=== PATIENT | male | born 2000 | race Caucasian/White ===

== ENCOUNTER 2021-06-22 17:16 | Inpatient (IN) | payer MEDICAID, SELFPAY ==
[2021-06-22 17:16] VITALS: BMI 20.2
[2021-06-22 17:19] VITALS: BP 124/69; PULSE 67; RESP 18; TEMP 36.7; O2SAT 95
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
--- NOTE | 2021-06-22 18:00 | PC.NURSE ---
QUESTION OF BED BUGS ER THAT PATIENT WAS IN CALLED TO REPORT THAT PATIENT HAS STATED HE HAD BED BUGS. ER NURSE REPORTED THAT THERE WERE NO SIGNS OF THIS NOTED ON PATIENT. PATIENT HAS BEEN EXPERIENCING HALLUCINATIONS AND PARANOIA. NPU DIRECTOR CALLED TO VERIFY WHAT OUR PROCEDURE WOULD BE TO BE ABLE TO ACCEPT PATIENT D/T THE CHANCE OF BED BUGS. ER WAS NOTIFIED THAT WE WOULD NEED THEM TO BAG AND SEAL BELONGINGS, AND FOLLOW THEIR POLICY TO TREATING IT, THEN SEND NPU DOCUMENTATION. THIS WAS COMPLETED. BELONGINGS CAME IN SEALED BAGS. UPON ARRIVAL TO UNIT, [facility] SKIN ASSESSMENT COMPLETED, NO SIGNS OF BITES NOTED ON PERSON.
[2021-06-22] MEDS: risperiDONE 1 mg Tablet PO (18:31)
[2021-06-22] MEDS: trazodone 100 mg Tablet PO (20:32)
[2021-06-22 22:00] VITALS: BP 111/69; PULSE 88; RESP 16; TEMP 36.3; O2SAT 96
[2021-06-23 06:00] VITALS: BP 110/58; PULSE 56; RESP 16; TEMP 36.6; O2SAT 96
[2021-06-23] MEDS: OLANZapine 5 mg ODT PO ×2 (08:16→17:15)
--- NOTE | 2021-06-23 08:17 | PC.NURSE ---
Zyprexia 5m sl given for auditory hallucinations and anxiety.
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
--- NOTE | 2021-06-23 10:11 | PC.NURSE ---
0930 Patient is resting supine, eyes closed. No distress observed.
[2021-06-23] MEDS: risperiDONE 1 mg Tablet PO (11:53)
[2021-06-23 13:28] VITALS: BP 97/54; PULSE 82; RESP 17; TEMP 36.9; O2SAT 99
--- NOTE | 2021-06-23 17:17 | PC.NURSE ---
Patient mother called and said that patient is hearing voices and is afraid to come to the desk and tell anyone. Patient stated the voices are getting worse. Whispering in nature and non commanding.
[2021-06-23] MEDS: haloperidol 5 mg Tablet PO (18:07)
--- NOTE | 2021-06-23 18:08 | PC.NURSE ---
patient at nurses station with continued c/o hearing voices. Haldol 5 mg po given.
[2021-06-23] MEDS: risperiDONE 2 mg Tablet PO (20:30)
[2021-06-23 20:42] VITALS: BP 124/68; PULSE 74; RESP 16; TEMP 36.6; O2SAT 99
[2021-06-24 06:00] VITALS: BP 109/67; PULSE 57; RESP 17; TEMP 36.8; O2SAT 98
[2021-06-24] MEDS: risperiDONE 1 mg Tablet PO (08:04)
[2021-06-24] MEDS: haloperidol 5 mg Tablet PO ×2 (08:05→11:30)
[2021-06-24] MEDS: hyDROXYzine 25 mg Capsule 50 MG PO (08:10)
--- NOTE | 2021-06-24 08:10 | PC.NURSE ---
Patient at nurses station stating voicing hearing voices that arent going away and are bad. States they are whispering and non commanding. Patient has anxious affect. Giving prn vistaril and haldol for this. 1:1 sitter ordered. Patient states I want to hang myself. Contracts for safety.
--- NOTE | 2021-06-24 08:14 | P.NPUPN_ITS ---
Subjective NPU Subjective: Interval history: The nurses report that he had bad hallucinations last night. Kemi Ferrera did not seem to do anything but Haldol 5 mg did. He is up to the window complaining of command hallucinations to harm himself now. We will go ahead and increase the risperidone to 3 mg twice a day. He says that he normally likes to read but he cannot concentrate to read because of the voices. He cannot distract himself from them. He says the risperidone helps his normal voices but these are just voices that have started recently and it has not helped him. Mental Status Exam MSE Comments: This is a 20-year old thin male who appears approximately his stated age and significantly distressed because of the hallucinations. He is pleasant and cooperative with the evaluation. He is dressed in hospital scrubs with fair grooming and several days of growth of hampton. psychomotor activity increased. He is tremulous Speech is at a regular rate and rhythm, normal volume, good articulation, not pressured. Alert, oriented X3 Attention and concentration appear to be intact. Memory is intact Mood is depressed. Affect is more dysphoric. Thought process is logical and goal-directed. Thought content: He admits to auditory hallucinations but denies visual hallucinations. No delusions or paranoia are noted. However he reportedly thought that there was a WebCam in his classes at home. He admits to recent but no current suicidal ideation, and no homicidal ideation. Fund of knowledge is appears to be average. Insight and judgment appear to be fair. Impulse control is poor. Cognition: Patient Appearance: Appropriate Ability to Follow Directions: Good Patient Orientation (long list): Person and Name Comprehension Ability: Mild Impairment Hallucination Type: Auditory Delusion Description: Not Present Thought Process: Appropriate Affect: Affect Description: Appropriate Behavior: Patient Behavior: Appropriate, Cooperative and Withdrawn Speech Pattern: Appropriate and Clear Vitals/I&O/Wt Last Vital Signs Temp 98.2 F 06/24/21 06:00 Pulse 57 L 06/24/21 06:00 Resp 17 06/24/21 06:00 BP 109/67 06/24/21 06:00 Pulse Ox 98 06/24/21 06:00 Weight last 48 hrs Weight 58.513 kg A&P Assessment and plan (1) Schizophrenia: Status: Acute (2) PTSD (post-traumatic stress disorder): Status: Acute (3) Cannabis abuse: Status: Acute Plan This is a 20-year-old male who reports a lifetime of hearing auditory hallucinations and also suffers from PTSD and autism by his report. Plan: 1. We will gradually increase the risperidone 3 mg twice daily. Continue Vistaril and trazodone as needed. 2. Continue every 15 minute checks for safety. 3. Encourage individual, group and milieu therapies. 4. Encourage sober living treatment after discharge at the highest level of care to which he is willing to commit. 5. We will monitor for safety for himself in the community prior to discharge. Involuntary Hold Information 96 Hour Hold: 96 Hour Involuntary Admission: No Attestations NPU Medical Necessity Statement*: Inpatient hospitalization is medically necessary and the clinically appropriate intervention at this time. We will initiate medications and make changes as indicated. Coding Level of Care Code Acute Retail Presentation Specialist for [facility] Diagnoses Schizophrenia F20.9 PTSD (post-traumatic stress disorder) F43.10 Cannabis abuse F12.10
[2021-06-24] MEDS: risperiDONE 2 mg Tablet PO (08:42)
[2021-06-24 14:00] VITALS: BP 112/74; PULSE 81; RESP 16; TEMP 36.6; O2SAT 99
[2021-06-24] MEDS: risperiDONE 1 mg Tablet 3 MG PO (20:29)
[2021-06-24 21:45] VITALS: BP 138/71; PULSE 65; RESP 18; TEMP 36.3; O2SAT 100
[2021-06-25 06:00] VITALS: BP 115/66; PULSE 76; RESP 16; TEMP 36.1; O2SAT 97
[2021-06-25] MEDS: risperiDONE 1 mg Tablet 3 MG PO ×2 (09:34→21:25)
[2021-06-25 14:00] VITALS: BP 143/83; PULSE 118; RESP 18; O2SAT 100
[2021-06-25] MEDS: haloperidol 5 mg Tablet PO (18:09)
[2021-06-25] MEDS: hyDROXYzine 25 mg Capsule 50 MG PO (18:09)
[2021-06-25] MEDS: LORazepam 1 mg Tablet PO (19:41)
[2021-06-25 22:00] VITALS: BP 127/82; PULSE 88; RESP 20; TEMP 36.3; O2SAT 98
--- NOTE | 2021-06-25 22:52 | P.NPUPN_ITS ---
Subjective NPU Subjective: Interval history: Patient presents today reporting that things are going okay. He reported that he had a struggling with voices but that does have gone to the background. A lot of this has to do with some of the positives and negatives that have come from reconnecting with his bio family and some of the triggering of PTSD symptoms from that. He was worried about having a place to go but he reports his lease is ending and he would likely be able to stay with his family briefly. He reports that he is but he put off his trip to see his family while he is stabilized. Mental Status Exam MSE Comments: This is a underweight versus slender white male in hospital scrubs with limited grooming and eye contact. No abnormal movements except for psychomotor retardation. Mostly cooperative with exam and mild to moderate distress. Speech was decreased rate and volume and somewhat drowsy. Mood described as a little better, affect anxious. Thought process organized. T hought content: Patient denied suicidal or homicidal ideation, there were no delusions reported or noted, he denied any auditory or visual hallucinations. Attention and concentration were intact and memory appeared mostly reliable but none were formally tested. He is oriented x3. Insight and judgment are limited and impulse control is impaired. Vitals/I&O/Wt Last Vital Signs Temp 97.4 F L 06/25/21 22:00 Pulse 88 06/25/21 22:00 Resp 20 H 06/25/21 22:00 BP 127/82 06/25/21 22:00 Pulse Ox 98 06/25/21 22:00 A&P Assessment and plan (1) Schizophrenia: Status: Acute (2) PTSD (post-traumatic stress disorder): Status: Acute (3) Cannabis abuse: Status: Acute (4) Cluster B personality disorder in adult: Status: Acute Plan This is a 20-year-old male who reports a lifetime of hearing auditory hallucinations and also suffers from PTSD and autism by his report. Plan: 1.? We will gradually increase the risperidone 3 mg twice daily.? Continue Vistaril and trazodone as needed. 2.? Continue every 15 minute checks for safety. 3.? Encourage individual, group and milieu therapies. 4.? Encourage sober living treatment after discharge at the highest level of care to which he is willing to commit. Involuntary Hold Information 96 Hour Hold: 96 Hour Involuntary Admission: No Attestations NPU Medical Necessity Statement*: Inpatient hospitalization is medically necessary and the clinically appropriate intervention at this time.? We will initiate medications and make changes as indicated. Likely length of stay 2-4 days. Coding Level of Care Code Acute Top Case Assembler for Chg Fwd Diagnoses Schizophrenia F20.9 PTSD (post-traumatic stress disorder) F43.10 Cannabis abuse F12.10 Cluster B personality disorder in adult F60.9
[2021-06-26 06:00] VITALS: BP 133/72; PULSE 57; RESP 17; TEMP 36.9; O2SAT 99
[2021-06-26] MEDS: risperiDONE 1 mg Tablet 3 MG PO ×2 (09:40→22:00)
[2021-06-26 14:00] VITALS: BP 124/71; PULSE 100; RESP 17; TEMP 36.7; O2SAT 98
--- NOTE | 2021-06-26 15:20 | W.PM.NPUPNS ---
Subjective NPU Subjective: Interval history: Patient presents today reporting that he is feeling a little better today. He reports he is feeling cold but he is always cold and wanted to get under the blankets. He reports that he is feeling a little less anxious and feels like his voices have reduced a bit which he feels is a good thing. He reports he still has them but they are greatly diminished compared to when he first got here. We discussed gearing up for Tuesday discharge and he felt he could be optimistic and likely ready for discharge on that date. Mental Status Exam MSE Comments: This is a underweight versus slender white male in hospital scrubs with limited grooming and eye contact.? No abnormal movements except for psychomotor retardation.? Mostly cooperative with exam in mild distress.? Speech was decreased rate and volume.? Mood described as a little better, affect less anxious.? Thought process organized.? Thought content: Patient denied suicidal or homicidal ideation, there were no delusions reported or noted, he denied any auditory or visual hallucinations.? Attention and concentration were intact and memory appeared mostly reliable but none were formally tested.? He is oriented x3.? Insight and judgment are limited and impulse control is impaired. Vitals/I&O/Wt Last Vital Signs Temp 98.0 F 06/26/21 14:00 Pulse 100 06/26/21 14:00 Resp 17 06/26/21 14:00 BP 124/71 06/26/21 14:00 Pulse Ox 98 06/26/21 14:00 A&P Assessment and plan (1) Cluster B personality disorder in adult: Status: Acute (2) Schizophrenia: Status: Acute (3) PTSD (post-traumatic stress disorder): Status: Acute (4) Cannabis abuse: Status: Acute Plan This is a 20-year-old male who reports a lifetime of hearing auditory hallucinations and also suffers from PTSD and autism by his report. Plan: 1.? We will gradually increase the risperidone 3 mg twice daily.? Continue Vistaril and trazodone as needed. 2.? Continue every 15 minute checks for safety. 3.? Encourage individual, group and milieu therapies. 4.? Encourage sober living treatment after discharge at the highest level of care to which he is willing to commit. Involuntary Hold Information 96 Hour Hold: 96 Hour Involuntary Admission: No Attestations NPU Medical Necessity Statement*: Inpatient hospitalization is medically necessary and the clinically appropriate intervention at this time.? We will initiate medications and make changes as indicated. Likely length of stay 1-3 days. Coding Level of Care Code Acute Environmental Field Team Member for [facility] Fwd Diagnoses Cluster B personality disorder in adult F60.9 Schizophrenia F20.9 PTSD (post-traumatic stress disorder) F43.10 Cannabis abuse F12.10
[2021-06-26] MEDS: trazodone 50 mg Tablet PO (20:48)
[2021-06-26 20:53] VITALS: BP 116/75; PULSE 95; RESP 16; TEMP 36.9; O2SAT 99
[2021-06-27 06:00] VITALS: BP 116/79; PULSE 76; RESP 16; O2SAT 99
[2021-06-27] MEDS: risperiDONE 1 mg Tablet 3 MG PO ×2 (10:26→20:18)
[2021-06-27 14:00] VITALS: BP 124/75; PULSE 87; RESP 16; TEMP 36.7; O2SAT 98
--- NOTE | 2021-06-27 14:31 | W.PM.NPUPNS ---
Subjective NPU Subjective: Interval history: Patient presents today continuing to report optimism and slow improvement. We continue to discuss possibility of discharge on Tuesday. He continues to report that the voices are taking more of a backseat and that he is having less issues overall. Reports that he slept a little better and denied any new challenges. Mental Status Exam MSE Comments: This is a underweight versus slender white male in hospital scrubs with limited grooming and eye contact.? No abnormal movements except for mild psychomotor retardation.? More cooperative with exam in less distress.? Speech was decreased rate and volume.? Mood described as a little better, affect congruent.? Thought process organized.? Thought content: Patient denied suicidal or homicidal ideation, there were no delusions reported or noted, he denied any auditory or visual hallucinations.? Attention and concentration were intact and memory appeared mostly reliable but none were formally tested.? He is oriented x3.? Insight and judgment are limited and impulse control is impaired, but improving Vitals/I&O/Wt Last Vital Signs Temp 98.0 F 06/27/21 14:00 Pulse 87 06/27/21 14:00 Resp 16 06/27/21 14:00 BP 124/75 06/27/21 14:00 Pulse Ox 98 06/27/21 14:00 A&P Assessment and plan (1) Cluster B personality disorder in adult: Status: Acute (2) Schizophrenia: Status: Acute (3) PTSD (post-traumatic stress disorder): Status: Acute (4) Cannabis abuse: Status: Acute Plan This is a 20-year-old male who reports a lifetime of hearing auditory hallucinations and also suffers from PTSD and autism by his report. Plan: 1.? We will gradually increase the risperidone 3 mg twice daily.? Continue Vistaril and trazodone as needed. 2.? Continue every 15 minute checks for safety. 3.? Encourage individual, group and milieu therapies. 4.? Encourage sober living treatment after discharge at the highest level of care to which he is willing to commit. Involuntary Hold Information 96 Hour Hold: 96 Hour Involuntary Admission: No Attestations NPU Medical Necessity Statement*: Inpatient hospitalization is medically necessary and the clinically appropriate intervention at this time.? We will initiate medications and make changes as indicated. Likely length of stay 1-3 days. Coding Level of Care Code Acute Dry End Operator for g Fwd Diagnoses Cluster B personality disorder in adult F60.9 Schizophrenia F20.9 PTSD (post-traumatic stress disorder) F43.10 Cannabis abuse F12.10
[2021-06-27] MEDS: trazodone 50 mg Tablet PO (20:18)
[2021-06-27 22:00] VITALS: BP 136/75; PULSE 90; RESP 16; TEMP 36.8; O2SAT 99
[2021-06-27 22:35] VITALS: BP 136/75; PULSE 90; RESP 16; TEMP 36.8; O2SAT 99
[2021-06-28 05:26] VITALS: BP 136/75; PULSE 90; RESP 16; TEMP 36.8; O2SAT 99
[2021-06-28 06:00] VITALS: BP 116/80; PULSE 110; RESP 18; TEMP 36.7; O2SAT 98
--- NOTE | 2021-06-28 06:04 | PC.NURSE ---
PRN Administration: Patient c/o trouble getting to sleep, given PRN trazodone with noted effectiveness.
[2021-06-28] MEDS: risperiDONE 1 mg Tablet 3 MG PO ×2 (09:00→20:10)
--- NOTE | 2021-06-28 09:10 | PC.NURSE ---
AM assessment Patient resting in bed with eyes closed. He awakens easily to verbal stimuli. He denies pain at this time. He denies SI or HI. He does c/o muted voices but does not describe them. Denies all other hallucinations. Affect is bland. Hr regular in rhythm. PPP x 2, no edema noted. Lungs clear with breathing even and non labored. Bowel sounds active in all quads. Denies pain with urination. Denies all other pain. Skin is warm and dry with no skin tears, rashes or bruises noted.
--- NOTE | 2021-06-28 11:37 | P.NPUPN_ITS ---
Subjective NPU Subjective: Interval history: Patient presents today reporting that he is continuing to feel a little better a day at a time. He reports he feels excited about the prospect of discharging tomorrow and going home. He reports that the voices are not bothering him anymore than the level that he can manage and that he is doing much better from the standpoint of depression. He reports he is eating and sleeping well. Mental Status Exam MSE Comments: This is a underweight versus slender white male in hospital scrubs with limited grooming and eye contact.? No abnormal movements except for resolving mild psychomotor retardation.? More cooperative with exam in no acute distress.? Speech was decreased rate and volume.? Mood described as better, affect congruent.? Thought process organized.? Thought content: Patient denied suicidal or homicidal ideation, there were no delusions reported or noted, he denied any auditory or visual hallucinations.? Attention and concentration were intact and memory appeared mostly reliable but none were formally tested.? He is oriented x3.? Insight and judgment are limited and impulse control is improving Vitals/I&O/Wt Last Vital Signs Temp 98.0 F 06/28/21 06:00 Pulse 110 H 06/28/21 06:00 Resp 18 06/28/21 06:00 BP 116/80 06/28/21 06:00 Pulse Ox 98 06/28/21 06:00 Weight last 48 hrs Weight 61.507 kg A&P Assessment and plan (1) Cluster B personality disorder in adult: Status: Acute (2) Schizophrenia: Status: Acute (3) PTSD (post-traumatic stress disorder): Status: Acute (4) Cannabis abuse: Status: Acute Plan This is a 20-year-old male who reports a lifetime of hearing auditory hallucinations and also suffers from PTSD and autism by his report. Plan: 1.? We will gradually increase the risperidone 3 mg twice daily.? Continue Vistaril and trazodone as needed. 2.? Continue every 15 minute checks for safety. 3.? Encourage individual, group and milieu therapies. 4.? Encourage sober living treatment after discharge at the highest level of care to which he is willing to commit. Involuntary Hold Information 96 Hour Hold: 96 Hour Involuntary Admission: No Attestations NPU Medical Necessity Statement*: Inpatient hospitalization is medically necessary and the clinically appropriate intervention at this time.? We will initiate medications and make changes as indicated. Plan for discharge in the morning. Coding Level of Care Code Acute Security System Administrator for Ch[facility] Fwd Diagnoses Cluster B personality disorder in adult F60.9 Schizophrenia F20.9 PTSD (post-traumatic stress disorder) F43.10 Cannabis abuse F12.10
[2021-06-28 14:00] VITALS: BP 111/62; PULSE 109; RESP 18; TEMP 36.6; O2SAT 99
[2021-06-28 20:14] VITALS: BP 123/65; PULSE 82; RESP 16; TEMP 36.9; O2SAT 96
[2021-06-29 05:35] VITALS: BP 123/65; PULSE 82; RESP 16; TEMP 36.9; O2SAT 96
[2021-06-29 05:52] VITALS: BP 125/67; PULSE 69; RESP 16; TEMP 36.4; O2SAT 97
[2021-06-29] MEDS: risperiDONE 1 mg Tablet 3 MG PO (09:03)
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
[2021-06-29 13:49] VITALS: BP 122/92; PULSE 113; RESP 18; TEMP 36.5; O2SAT 99
--- NOTE | 2021-07-07 08:16 | PC.SOCIAL ---
Care Coordination Soil Engineer received voicemail from mom, Alivia Dejesus regarding meds that she was trying to pick meds that were prescribed in a stronger strength, but meds required a PA. Called charge nurse on [facility] regarding voicemail message and gave them the information and told them civil engineering assistant would call back mother to let her know her message was received, and gave her direct number to [facility] to followup with.
== END 2021-06-29 15:00 | disposition home or self-care (01) | DRG 885 ==
PROVIDERS: Admitting Provider Psychiatry & Neurology Psychiatry; Visit Provider Psychiatry & Neurology Psychiatry
DX: F20.9 Schizophrenia, unspecified (principal); F60.9 Personality disorder, unspecified; F43.10 Post-traumatic stress disorder, unspecified; F12.10 Cannabis abuse, uncomplicated; Z62.810 Personal history of physical and sexual abuse in childhood
CPT/HCPCS: 97150; 97165